=== PATIENT | female | born 1965 | race Caucasian/White ===

== ENCOUNTER → 2019-09-09 12:41 | Outpatient (BNVA) | payer BC, SELFPAY | PROVIDERS: Family Provider Family Medicine; PCP Family Medicine; Referring Provider Family Medicine; Visit Provider Obstetrics & Gynecology | DX: Z12.4 Encounter for screening for malignant neoplasm of cervix (principal); N92.0 Excessive and frequent menstruation with regular cycle | CPT/HCPCS: 88175 ==

== ENCOUNTER 2019-09-10 07:55 | Outpatient (CLI) | payer BC, SELFPAY ==
[2019-09-10 08:21] LABS: Hematocrit 43.1 % (37.0-47.0); Hemoglobin 13.7 g/dL (11.5-15.3); Mean Corpuscular HGB Conc 31.8 g/dL (30.0-36.0); Mean Corpuscular Hemoglobin 30.4 pg (28.0-34.0); Mean Corpuscular Volume 95.8 fL (81-99); Mean Platelet Volume 12.3 fL (7.4-10.4); Platelet Count 112 10^3/cmm (130-400); Red Cell Distribution Width 13.2 % (12.1-15.1); White Blood Count 5.1 10^3/uL (4.0-10.0)
[2019-09-10 09:28] LABS: Thyroid Stimulating Hormone 3.59 uIU/mL (0.27-4.20)
== END 2019-09-10 07:56 | disposition home or self-care (01) ==
LOC: LAB 07:59
PROVIDERS: Family Provider Family Medicine; PCP Family Medicine; Visit Provider Obstetrics & Gynecology
DX: N92.0 Excessive and frequent menstruation with regular cycle (principal)
CPT/HCPCS: 84443; 85027

== ENCOUNTER → 2019-09-15 09:53 | Outpatient (BNVA) | payer BC, SELFPAY | PROVIDERS: Family Provider Family Medicine; PCP Family Medicine; Visit Provider Obstetrics & Gynecology | DX: N92.0 Excessive and frequent menstruation with regular cycle (principal) | CPT/HCPCS: 76830 ==

== ENCOUNTER → 2019-09-16 08:18 | Outpatient (BNVA) | payer BC, SELFPAY | PROVIDERS: Family Provider Family Medicine; PCP Family Medicine; Visit Provider Obstetrics & Gynecology | DX: N92.0 Excessive and frequent menstruation with regular cycle (principal) | CPT/HCPCS: 88305 ==

== ENCOUNTER → 2020-01-28 10:23 | Outpatient (BNVA) | payer BC, SELFPAY | PROVIDERS: Family Provider Family Medicine; PCP Family Medicine; Visit Provider Obstetrics & Gynecology | DX: N83.201 Unspecified ovarian cyst, right side (principal) | CPT/HCPCS: 76830 ==

== ENCOUNTER 2021-01-01 12:22 | Outpatient (CLI) | payer BC, SELFPAY ==
[2021-01-01 12:42] VITALS: BP 146/80; PULSE 78; RESP 18; TEMP 36.9; O2SAT 98; BMI 33.7
[2021-01-01 13:36] VITALS: BP 121/83; PULSE 88; RESP 18; O2SAT 96
[2021-01-01 14:32] VITALS: BP 143/91; PULSE 71; RESP 17; TEMP 36.8; O2SAT 98
== END 2021-01-01 12:23 | disposition home or self-care (01) ==
LOC: OPS 12:28
PROVIDERS: PCP Family Medicine; Visit Provider Nurse Practitioner Family
DX: U07.1 COVID-19 (principal)
CPT/HCPCS: 96365

== ENCOUNTER 2021-06-19 09:17 | Outpatient (CLI) | payer BC, SELFPAY ==
--- NOTE | 2021-06-19 09:30 | MM_ITS ---
WS: [id number] BILATERAL DIGITAL SCREENING MAMMOGRAPHY WITH CAD CLINICAL INFORMATION: screening exam HISTORY: Screening mammogram. No current complaints. COMPARISON: None. TECHNIQUE: Bilateral CC and MLO views. FINDINGS: Scattered fibroglandular densities bilaterally. A few incidental punctate calcifications right breast . No suspicious focal mass, asymmetry, calcifications, or architectural distortion. No evidence of ma lignancy. MM/[place] [id number] IMPRESSION: BI-RADS: 2-Benign FOLLOW UP: 1 Year Follow-up Recommend return to annual screening mammography.
== END 2021-06-19 09:18 | disposition home or self-care (01) ==
LOC: RADSHAW 09:19
PROVIDERS: PCP Family Medicine; Visit Provider Family Medicine
DX: Z12.31 Encounter for screening mammogram for malignant neoplasm of breast (principal)
CPT/HCPCS: 77067

== ENCOUNTER → 2022-03-13 12:03 | Outpatient (BNVA) | payer BC, SELFPAY | PROVIDERS: PCP Family Medicine; Visit Provider Family Medicine | DX: Q89.2 Congenital malformations of other endocrine glands (principal) | CPT/HCPCS: 80053; 84439; 84443; 85025 ==

== ENCOUNTER 2022-04-05 13:06 | Outpatient (CLI) | payer BC, SELFPAY ==
--- NOTE | 2022-04-05 13:30 | USR_ITS ---
PROCEDURE INFORMATION: Exam: US Soft Tissue Head and Neck, Thyroid Exam date and time: 04/05/2022 1:26 PM Age: 56 years old Clinical indication: Other: Palp area on RT neck; Additional info: Mass superior to right clavicle TECHNIQUE: Imaging protocol: Real-time ultrasound scan of the neck with image documentation. Exam focused on the thyroid. COMPARISON: No relevant prior studies available. FINDINGS: Right thyroid lobe: Right lobe: 4.9 x 1.9 x 2.5 cm. 3.8 x 2.3 x 2.0 cm inhomogenous isoechoic and hypoechoic nodule with small cysts. There is vascularity within the nodule and parenchyma. Left thyroid lobe: Left lobe: 3.7 x 0.9 x 1.0 cm with 2 small 3 mm anechoic cysts. Isthmus: 0.26 cm in thickness. No nodule. Lymph nodes: Bilateral cervical lymph nodes visualized measuring up to 1.5 cm on the right and 2.1 cm on the left. US/US thyroid [id number] IMPRESSION: 1. 3.8 cm heterogeneous nodule in the right thyroid lobe. TIRADS Category 3: Mildly suspicious. Fine-needle aspiration is recommended. 2. Prominent bilateral cervical lymph nodes are most likely reactive.
== END 2022-04-05 13:07 | disposition home or self-care (01) ==
LOC: RAD 13:07
PROVIDERS: PCP Family Medicine; Visit Provider Family Medicine
DX: Q89.2 Congenital malformations of other endocrine glands (principal)
CPT/HCPCS: 76536

== ENCOUNTER 2022-05-06 08:42 | Outpatient (CLI) | payer BC, SELFPAY ==
--- NOTE | 2022-05-06 | US_ITS ---
WS: [id number] ULTRASOUND THYROID FNA CLINICAL INFORMATION: DISORDERED OF THYROID TECHNIQUE: Ultrasound-guided FNA FINDINGS: The procedure including risks, benefits, and complications were discussed with the patient who agreed to proceed. Timeout was performed. Using sterile technique patient was prepped and draped in usual sterile fashion. After 1% lidocaine, using ultrasound guidance, a 25-gauge needle was advanc ed into the complex dominant RIGHT thyroid nodule. 4 passes were made with active aspiration. Patholo gy was present for slide preparation. No immediate complications. Patient remained in the ultrasound suite 15 minutes postprocedure with intermittent ultrasound to ens ure no hematoma. No hematoma 15 minutes postprocedure. US/US biopsy/FNA thyroid [id number] IMPRESSION: Uncomplicated ultrasound-guided thyroid FNA
== END 2022-05-06 08:43 | disposition home or self-care (01) ==
PROVIDERS: PCP Family Medicine; Visit Provider Family Medicine
DX: E07.9 Disorder of thyroid, unspecified (principal)
CPT/HCPCS: 10005; 88108

== ENCOUNTER → 2022-07-18 09:39 | Outpatient (BNVA) | payer BC, SELFPAY | PROVIDERS: PCP Family Medicine; Visit Provider Family Medicine | DX: E04.1 Nontoxic single thyroid nodule (principal) | CPT/HCPCS: 80053; 84439; 84443; 85025 ==

== ENCOUNTER 2022-09-16 08:31 | Outpatient (CLI) | payer BC, SELFPAY ==
[2022-09-16 09:21] LABS: Basophils # 0.1 10^3/uL (0.0-0.1); Basophils % 1.2 %; Eosinophils # 0.2 10^3/uL (0.0-0.8); Eosinophils % 4.8 %; Hematocrit 45.3 % (37.0-47.0); Hemoglobin 15.2 g/dL (11.5-15.3); Lymphocytes # 1.6 10^3/uL (0.8-4.8); Lymphocytes % 37.7 %; Mean Corpuscular HGB Conc 33.6 g/dL (30.0-36.0); Mean Corpuscular Hemoglobin 31.6 pg (28.0-34.0); Mean Corpuscular Volume 94.2 fl (81-99); Mean Platelet Volume 11.7 fL (7.4-10.4); Monocytes # 0.4 10^3/uL (0.2-0.9); Monocytes % 9.7 %; Neutrophils # 1.92 10^3/uL (1.8-7.7); Neutrophils % 46.4 %; Nucleated Red Blood Cells % 0 %; Platelet Count 45 10^3/cmm (130-400); Red Blood Count 4.81 10^6/uL (4.1-5.3); Red Cell Distribution Width 14.1 % (12.1-15.1); White Blood Count 4.1 10^3/uL (4.0-10.0)
[2022-09-16 09:34] LABS: Alanine Aminotransferase 58 U/L (0-33); Albumin Level 3.7 g/dL (3.5-5.2); Alkaline Phosphatase 123 U/L (35-105); Anion Gap 14.3 (5-19); Blood Urea Nitrogen 8 mg/dL (6-20); Calcium 9.2 mg/dL (8.5-10.5); Carbon Dioxide 24 mmol/L (22-29); Chloride 103 mmol/L (98-107); Globulin 2.6 g/dL (1.3-4.6); Glomerular Filtration Rate 126.3 mL/min (90-130); Glucose 131 mg/dL (65-115); Osmolality Calculated 284 mOsm/kg (285-295); Potassium 4.3 mmol/L (3.5-5.1); Sodium 137 mmol/L (136-145); Total Bilirubin 0.7 mg/dL (0.15-1.2); Total Protein 6.3 g/dL (6.6-8.7)
[2022-09-16 09:35] LABS: Aspartate Amino Transferase 67 U/L (0-32)
[2022-09-16 09:44] LABS: Slide Review Slide Review Perform
== END 2022-09-16 08:32 | disposition home or self-care (01) ==
PROVIDERS: PCP Family Medicine; Visit Provider Specialist
DX: E04.1 Nontoxic single thyroid nodule (principal)
CPT/HCPCS: 36415; 80053; 85025

== ENCOUNTER → 2022-11-07 10:49 | Outpatient (BNVA) | payer BC, SELFPAY | PROVIDERS: PCP Family Medicine; Visit Provider Family Medicine | DX: E04.1 Nontoxic single thyroid nodule (principal) | CPT/HCPCS: 84439; 84443 ==

== ENCOUNTER 2023-01-16 09:53 | Outpatient (CLI) | payer BC, SELFPAY ==
[2023-01-16 11:01] LABS: Free T4 Free Thyroxine 1.26 ng/dL (0.82-1.77); Thyroid Stimulating Hormone 2.41 uIU/mL (0.27-4.20)
== END 2023-01-16 09:54 | disposition home or self-care (01) ==
PROVIDERS: PCP Family Medicine; Visit Provider Specialist
DX: Z01.89 Encounter for other specified special examinations (principal)
CPT/HCPCS: 36415; 84439; 84443

== ENCOUNTER 2023-08-18 10:51 | Outpatient (CLI) | payer BC, SELFPAY ==
--- NOTE | 2023-08-18 10:58 | XR_ITS ---
WS: [id number] Examination: XR knee RT 3V* [id number] Reason for Exam: edema in right knee Date: August 18, 2023 Comparison: None. Findings: The bone density is maintained. There is no destruction. There is no fracture or dislocation No large joint effusion is present. Limited narrowing of the medial joint space is suspected. Impression: There is no acute bony abnormality There is limited narrowing of the medial joint space and mild degenerative changes.
== END 2023-08-18 10:52 | disposition home or self-care (01) ==
LOC: RAD 10:53
PROVIDERS: PCP Family Medicine; Visit Provider Family Medicine
DX: M17.11 Unilateral primary osteoarthritis, right knee (principal)
CPT/HCPCS: 73562

== ENCOUNTER 2023-08-20 07:35 | Outpatient (CLI) | payer BC, SELFPAY ==
[2023-08-20 08:06] LABS: Basophils # 0.1 10^3/uL (0.0-0.1); Basophils % 1.8 %; Eosinophils # 0.1 10^3/uL (0.0-0.8); Eosinophils % 2.5 %; Hematocrit 46.9 % (36-47); Lymphocytes # 1.4 10^3/uL (0.8-4.8); Lymphocytes % 35.1 %; Mean Corpuscular HGB Conc 32.2 g/dL (30-55); Mean Corpuscular Hemoglobin 31.8 pg (27-33); Mean Corpuscular Volume 98.7 fl (85-98); Mean Platelet Volume 12.9 fL (7.4-10.4); Monocytes # 0.4 10^3/uL (0.2-0.9); Monocytes % 9.7 %; Neutrophils % 50.9 %; Nucleated Red Blood Cells % 0 %; Platelet Count 61 10^3/cmm (157-399); Red Blood Count 4.75 10^6/uL (3.85-5.65); Red Cell Distribution Width 14.4 % (12.1-15.1); White Blood Count 3.93 10^3/uL (3.29-11.43)
[2023-08-20 08:36] LABS: Alanine Aminotransferase 43 U/L (0-33); Alkaline Phosphatase 109 U/L (35-105); Anion Gap 13.1 (5-19); Aspartate Amino Transferase 56 U/L (0-32); Blood Urea Nitrogen 11 mg/dL (8-23); Calcium 9.5 mg/dL (8.5-10.5); Carbon Dioxide 23 mmol/L (22-29); Chloride 108 mmol/L (98-107); Cholesterol 219 mg/dL (0-200); Free T4 Free Thyroxine 1.29 ng/dL (0.82-1.77); Globulin 2.8 g/dL (1.3-4.6); Glomerular Filtration Rate 125.9 mL/min (90-130); Glucose 106 mg/dL (65-115); HDL Cholesterol 81 mg/dL (60-100); LDL Cholesterol Calculated 117 mg/dL (50-129); LDL HDL Ratio 1.44 RATIO (0.00-3.22); Osmolality Calculated 290 mOsm/kg (285-295); Potassium 4.1 mmol/L (3.5-5.1); Sodium 140 mmol/L (136-145); Thyroid Stimulating Hormone 3.17 uIU/mL (0.27-4.20); Total Bilirubin 1.2 mg/dL (0.15-1.2); Total Protein 6.8 g/dL (6.6-8.7); Triglycerides 104 mg/dL (0-150)
== END 2023-08-20 07:36 | disposition home or self-care (01) ==
LOC: LAB 07:40
PROVIDERS: Absent Provider Specialist; PCP Family Medicine; Visit Provider Family Medicine
DX: Z01.818 Encounter for other preprocedural examination (principal); E04.1 Nontoxic single thyroid nodule
CPT/HCPCS: 36415; 80053; 80061; 84439; 84443; 85025

== ENCOUNTER 2023-09-03 12:17 | Outpatient (CLI) | payer BC, SELFPAY ==
[2023-09-05 07:11] LABS: Lymphoma Profile (BBPL) See Report
== END 2023-09-03 12:18 | disposition home or self-care (01) ==
LOC: LAB 12:18
PROVIDERS: PCP Family Medicine; Visit Provider Specialist
DX: R22.1 Localized swelling, mass and lump, neck (principal)
CPT/HCPCS: 87015; 87070; 87102; 87116; 87176; 87205; 87206; 87801; 88184; 88185

== ENCOUNTER 2024-08-27 09:16 | Emergency (ER) | payer BC, SELFPAY ==
[2024-08-27] VITALS (8 sets, daily range): BP systolic 95–123; BP diastolic 43–97; PULSE 64–94; RESP 15–22; TEMP 36.8; O2SAT 97–99; BMI 37.3
--- NOTE | 2024-08-27 09:32 | W.ED.WEAKNES ---
HPI - Weakness General: Chief complaint: Weakness Stated complaint: weakness - jaundice Time Seen by Provider: 08/27/24 09:17 History of Present Illness: 59-year-old female with a history of obesity, anxiety and asthma who presents to the emergency room with increasing weakness for the last month. She said she started become jaundiced over the last week. And then she started having swelling over the last few days. She is extremely edematous and her abdomen is distended and mildly tender diffusely. She is obviously jaundiced. She says she has had decreased urine output. Less frequent stools. No fevers. No altered mental status. She denies any heavy use of alcohol. She does state a family history of noncancerous liver disease that took her father's life. Review of Systems Narrative: Constitutional symptoms: Negative except as documented in HPI. Skin symptoms: Negative except as documented in HPI. Eye symptoms: Negative except as documented in HPI. ENMT symptoms: Negative except as documented in HPI. Respiratory symptoms: Negative except as documented in HPI. Cardiovascular symptoms: Negative except as documented in HPI. Gastrointestinal symptoms: Negative except as documented in HPI. Genitourinary symptoms: Negative except as documented in HPI. Musculoskeletal symptoms: Negative except as documented in HPI. Neurologic symptoms: Negative except as documented in HPI. Psychiatric symptoms: Negative except as documented in HPI. Endocrine symptoms: Negative except as documented in HPI. [facility] ED PFSH: Medical History Anxiety Asthma Obesity Renal calculi Thyroid cyst Surgical History History of surgery on wrist (~09/2016) left wrist, in [facility] Family History Father Heart disease Hypercholesteremia Thyroid disease Diabetes Daughter Hypertension Mother Hypertension Thyroid disease Diabetes Brother Thyroid disease Sister Thyroid disease Social History Smoking and tobacco/nicotine status: former use of tobacco/nicotine Alcohol intake: current Alcohol intake frequency: 0-2 Drinks per Day Alcohol type: wine Substance/Drug Use: never Physical Exam Narrative: EXAM NARRATIVE: General: Alert, no acute distress. Skin: Warm, dry. Jaundice Head: Normocephalic, atraumatic. Neck: Supple, trachea midline. Eye: Extraocular movements are intact. Ears, nose, mouth and throat: Tacky oral mucosa Cardiovascular: Regular, Normal peripheral perfusion. 2-3+ pitting edema of the legs Respiratory: Lungs are clear to auscultation, respirations are non-labored, breath sounds are equal, Symmetrical chest wall expansion. Gastrointestinal: Abdomen is fairly distended. No focal tenderness. Diffuse mild tenderness. Musculoskeletal: Normal ROM, no deformity. Neurological: Alert and oriented, No focal neurological deficit observed. Psychiatric: Cooperative, appropriate mood & affect. Course Vital Signs: Vital signs: Vital Signs Temperature 98.3 F 08/27/24 09:17 Pulse Rate 92 08/27/24 14:06 Respiratory Rate 18 08/27/24 14:06 Blood Pressure 108/47 08/27/24 14:06 Pulse Oximetry 97 08/27/24 14:06 Oxygen Delivery Me thod Room Air 08/27/24 14:06 MDM - Weakness Medical Decision Making Medical decision making: Differential diagnosis for patient presenting with generalized weakness including but not limited to and based on the above HPI, review of systems and physical exam: Sepsis. Dehydration. Renal failure. Electrolyte abnormalities. Anemia. Congestive heart failure. Hypotension. Coronary syndrome. Hepatitis. Cirrhosis. Infections such as pneumonia, urinary tract infection, [place] illness, Cellulitis, Viral infections including influenza and Covid-19. Workup: labwork and lab/exam driven imaging ordered to evaluate, rule in and rule out above pathologies. Lab Review: Laboratory results were reviewed and interpreted by myself the emergency room physician. Leukocytosis with a white count of 14,000. No anemia. Platelets are low at 122. Sodium is extremely low at 116. BUN and creatinine are acutely elevated at 50 and 2.9. 1 year ago she had normal renal function and normal sodium. Urinalysis with concern for infection. Nitrate positive. 5-10 whites. 1+ bacteria. Covering for this and SBP with cefepime. CT of the chest abdomen pelvis without contrast: This was done without contrast secondary to patient's renal failure. No evidence of pneumonia. Some mild atelectasis. Cirrhotic configuration of the liver with diffuse coarse heterogeneous [place] attenuation and innumerable small low-attenuation lesions. Metastatic disease or HCC not excluded on this noncontrast study. This was reviewed and interpreted by myself the emergency room physician. I also reviewed the radiology report. I reviewed the patient's medical record. Reexamination: Patient has remained stable as far as her breathing and vitals go. Blood pressures been normal to low normal. She has had no altered mental status. We discussed the findings and she has quite a few questions a lot of which I can answer with the limited amount of information we have right now. Assessment and plan: Hyponatremia Cirrhosis Hyperbilirubinemia Possible liver masses Urinary tract infection Acute renal failure Anasarca Ascites ?Ultimately given this patient's critical status with a sodium of 116 and unclear cause of her renal failure/liver failure with possible masses in her liver and concern for biliary obstruction she needs transfer to a tertiary care center where there is gastroenterology and critical care available. -1 L normal saline bolus. Patient is extremely edematous but she does have low sodium and a white count so I am starting with just a single liter of fluid at this time. Given cefepime. Would cover UTI and SBP. -Sepsis quality measures. -Lactic acid with a reflex was ordered. -Blood cultures were ordered. -I discussed the patient with the accepting physician on-call. - Discussed findings and plan with patient. Answered any questions. - All laboratory values were reviewed and interpreted personally by myself, the ER physician - All imaging was reviewed and interpreted personally by myself, the ER physician. - Evaluation and treatment of this problem were appropriate in the emergency setting Critical care -I spent a total of >35 minutes of critical care time managing the patient, independent of any other practitioner. -The time involved in the performance of separately reportable procedures was not counted towards critical care time. Lab Data 08/27/24 09:47 08/27/24 10:52 Radiology Impressions Chest/Abdomen/Pelvis CT 08/27/24 11:30 IMPRESSION: 1. Slight atelectasis in the lung bases. No focal pneumonia. 2. Cirrhotic configuration of the liver with diffuse coarse heterogeneous attenuation and innumerable small low-attenuation lesions. Metastatic disease or HCC not excluded on this noncontrast study. 3. Moderate abdominal ascites with diffuse body wall anasarca. 4. Small esophageal ventral hernia. 5. No other acute findings. Abdomen Ultrasound 08/27/24 12:03 IMPRESSION: 1. Cirrhotic liver with dense coarse echogenicity. No discernible focal lesions. 2. Ascites 3. Contracted gallbladder with thickened gallbladder wall which appears chronic presumably due to liver disease. Trace sludge in the gallbladder. Slight mineralization of the gallbladder wall on the noncontrast CT 4. Normal common bile duct. 5. No hydronephrosis in RIGHT kidney Laboratory Results WBC 14.07 10^3/uL (3.29-11.43) H 08/27/24 09:47 RBC 4.24 10^6/uL (3.85-5.65) 08/27/24 09:47 Hgb 13.70 g/dL (11.27-16.99) 08/27/24 09:47 Hct 38.2 % (36-47) 08/27/24 09:47 MCV 90.1 fl (85-98) 08/27/24 09:47 MCH 32.3 pg (27-33) 08/27/24 09:47 MCHC 35.9 g/dL (30-55) 08/27/24 09:47 RDW 19.3 % (12.1-15.1) H 08/27/24 09:47 Plt Count 122 10^3/cmm (157-399) L 08/27/24 09:47 MPV 10.7 fL (7.4-10.4) H 08/27/24 09:47 Neut % (Auto) 78.2 % 08/27/24 09:47 Lymph % (Auto) 9.2 % 08/27/24 09:47 [place] % (Auto) 9.9 % 08/27/24 09:47 Eos % (Auto) 1.6 % 08/27/24 09:47 Baso % (Auto) 0.2 % 08/27/24 09:47 Neut # (Auto) 11.00 10^3/uL (1.8-7.7) H 08/27/24 09:47 Lymph # (Auto) 1.3 10^3/uL (0.8-4.8) 08/27/24 09:47 [place] # (Auto) 1.4 10^3/uL (0.2-0.9) H 08/27/24 09:47 Eos # (Auto) 0.2 10^3/uL (0.0-0.8) 08/27/24 09:47 Baso # (Auto) 0.0 10^3/uL (0.0-0.1) 08/27/24 09:47 Nucleated RBC % (auto) 0 % 08/27/24 09:47 Nucleated RBCs # 0.0 /100WBC 08/27/24 09:47 PT 26.50 SECONDS (12.1-14.9) H 08/27/24 09:47 INR 2.28 (0.8-1.2) H 08/27/24 09:47 APTT 48.3 SECONDS (23.9-36.7) H 08/27/24 09:47 Sodium 116 mmol/L (136-145) L* 08/27/24 10:52 Potassium 4.5 mmol/L (3.5-5.1) 08/27/24 10:52 Chloride 87 mmol/L (98-107) L 08/27/24 10:52 Carbon Dioxide 17 mmol/L (22-29) L 08/27/24 10:52 Anion Gap 16.5 (5-19) 08/27/24 10:52 BUN 50 mg/dL (8-23) H 08/27/24 10:52 Creatinine 2.9 mg/dL (0.5-0.9) H 08/27/24 10:52 GFR Calculation 16.5 mL/min (90-130) L 08/27/24 10:52 Glucose 110 mg/dL (65-115) 08/27/24 10:52 Calculated Osmolality 256 mOsm/kg (285-295) L 08/27/24 10:52 Lactic Acid 1.5 mmol/L (0.5-2.2) 08/27/24 09:47 Calcium 8.1 mg/dL (8.5-10.5) L 08/27/24 10:52 Total Bilirubin 31.4 mg/dL (0.15-1.2) H* 08/27/24 10:52 AST 128 U/L (0-32) H 08/27/24 10:52 ALT 59 U/L (0-33) H 08/27/24 10:52 Alkaline Phosphatase 196 U/L (35-105) H 08/27/24 10:52 Ammonia 24 umol/L (11-51) 08/27/24 09:47 NT-Pro-B Natriuret Pep 601 pg/mL (0-125) H 08/27/24 10:52 Total Protein 4.7 g/dL (6.6-8.7) L 08/27/24 10:52 Albumin 2.6 g/dL (3.5-5.2) L 08/27/24 10:52 Globulin 2.1 g/dL (1.3-4.6) 08/27/24 10:52 Procalcitonin 2.47 ng/mL (0-0.5) H 08/27/24 10:52 Urine Color Dark yellow (Yellow) A 08/27/24 09:47 Urine Appearance Cloudy (CLEAR) A 08/27/24 09:47 Urine pH 5 (5-7) 08/27/24 09:47 Ur Specific [place] 1.020 (1.005-1.030) 08/27/24 09:47 Urine Protein 1+ (Negative) H 08/27/24 09:47 Urine Glucose (UA) Trace (Normal) H 08/27/24 09:47 Urine Ketones Negative (Negative) 08/27/24 09:47 Urine Blood 3+ (Negative) H 08/27/24 09:47 Urine Nitrate Positive (Negative) A 08/27/24 09:47 Urine Bilirubin 3+ (Negative) H 08/27/24 09:47 Urine Urobilinogen 8 mg/dL (Negative) H 08/27/24 09:47 Ur Leukocyte Esterase Trace (Negative) H 08/27/24 09:47 Urine RBC 11-20 /hpf (0-2) H 08/27/24 09:47 Urine WBC 5-10 /hpf (0-5) H 08/27/24 09:47 Ur Squamous Epith Cells 5-10 /hpf (0-5) H 08/27/24 09:47 Amorphous Sediment Not Reportable 08/27/24 09:47 Urine Bacteria 1+ /hpf (NONE) H 08/27/24 09:47 Hyaline Casts 19.43 /lpf 08/27/24 09:47 Coarse Granular Casts 0-4 /lpf H 08/27/24 09:47 Ethyl Alcohol < 10 mg/dL (0-10) 08/27/24 10:52 Hepatitis A IgM Ab Non-reactive (Nonreactive) 08/27/24 09:47 Hep Bs Antigen Non-reactive (Nonreactive) 08/27/24 09:47 Hep B Core IgM Ab Non-reactive (Nonreactive) 08/27/24 09:47 Hepatitis C Antibody Non-reactive (Nonreactive) 08/27/24 09:47 All radiology interpretation(s) finalized by discharge Discharge Plan Discharge Patient Disposition: Xfer Short-Term Hosp Clinical Impression: Cirrhosis, Acute hyponatremia, Acute renal failure, Hyperbilirubinemia, Anasarca, Ascites Condition: Stable Referrals: Lawrence Peterson MD [Primary Care Provider] - Print Language: Romanian Coding Level of Care Code ED Runway Model for Chg Fwd Related Data Previous Rx's ?Medication ?Instructions ?Recorded montelukast 10 mg tablet 10 mg PO DAILY #90 tabs 08/18/23 levothyroxine 100 mcg tablet 100 mcg PO DAILY #90 tabs 11/10/23 estradiol 1 mg tablet See Rx Instructions .Route 01/20/24 .COMPLEX #90 tabs alprazolam 0.5 mg tablet (Xanax) 0.5 mg PO ONCE PRN sleep #30 tabs 05/11/24 hydrocodone 5 mg-acetaminophen 325 1 tab PO Q12H PRN chronic 05/18/24 mg tablet pain/osteoarthritis 30 days #60 tabs medroxyprogesterone 2.5 mg tablet See Rx Instructions .Route 06/09/24 .COMPLEX #90 tabs albuterol sulfate 90 mcg/actuation See Rx Instructions .Route 07/06/24 aerosol inhaler (Ventolin HFA) .COMPLEX #17 grams Allergies Allergy/AdvReac Type Severity Reaction Status Date / Time amoxicillin (From Augmentin) Allergy vomiting Verified 08/18/23 09:38 ciprofloxacin Allergy vomiting Verified 08/18/23 09:38 clavulanic acid (From Allergy vomiting Verified 08/18/23 09:38 Augmentin)
--- NOTE | 2024-08-27 10:01 | PC.NURSE ---
pt provided x2 warm blankets, gown, and depends. denies any further needs at this time.
[2024-08-27 10:05] LABS: Basophils % 0.2 %; Eosinophils # 0.2 10^3/uL (0.0-0.8); Eosinophils % 1.6 %; Hematocrit 38.2 % (36-47); Lymphocytes # 1.3 10^3/uL (0.8-4.8); Lymphocytes % 9.2 %; Mean Corpuscular HGB Conc 35.9 g/dL (30-55); Mean Corpuscular Hemoglobin 32.3 pg (27-33); Mean Corpuscular Volume 90.1 fl (85-98); Mean Platelet Volume 10.7 fL (7.4-10.4); Monocytes # 1.4 10^3/uL (0.2-0.9); Monocytes % 9.9 %; Neutrophils % 78.2 %; Nucleated Red Blood Cells % 0 %; Platelet Count 122 10^3/cmm (157-399); Red Blood Count 4.24 10^6/uL (3.85-5.65); Red Cell Distribution Width 19.3 % (12.1-15.1); White Blood Count 14.07 10^3/uL (3.29-11.43)
[2024-08-27 10:08] LABS: Hyaline Casts Urine 19.43 /lpf
[2024-08-27 10:14] LABS: INR 2.28 (0.8-1.2)
[2024-08-27 10:15] LABS: Partial Thromboplastin Time 48.3 SECONDS (23.9-36.7)
[2024-08-27 10:22] LABS: Ammonia 24 umol/L (11-51)
[2024-08-27 10:27] LABS: Bilirubin Urine 3+ (Negative); Blood Urine 3+ (Negative); Glucose Urine UA Trace (Normal); Ketones Urine Negative (Negative); Leukocyte Esterase Urine Trace (Negative); Nitrate Urine Positive (Negative); Protein Urine 1+ (Negative); UA Slide Review UA Slide Review Perf; Urine Appearance Cloudy (CLEAR); Urine Color Dark Yellow (Yellow); Urobilinogen Urine 8 mg/dL (Negative); pH Urine 5 (5-7)
[2024-08-27 10:28] LABS: Add Urine Culture? Yes; Bacteria Urine 1+ /hpf; Coarse Granular Casts Urine 0-4 /lpf
[2024-08-27 10:37] LABS: Hepatitis A Antibody IgM Non-Reactive (Nonreactive); Hepatitis B Core IgM Non-Reactive (Nonreactive); Hepatitis B Surface Antigen Non-Reactive (Nonreactive); Hepatitis C Virus Antibody Non-Reactive (Nonreactive)
[2024-08-27 11:25] LABS: Alanine Aminotransferase 59 U/L (0-33); Albumin Level 2.6 g/dL (3.5-5.2); Alkaline Phosphatase 196 U/L (35-105); Anion Gap 16.5 (5-19); Aspartate Amino Transferase 128 U/L (0-32); Blood Urea Nitrogen 50 mg/dL (8-23); Calcium 8.1 mg/dL (8.5-10.5); Carbon Dioxide 17 mmol/L (22-29); Chloride 87 mmol/L (98-107); Creatinine Clr Calc Pharmacy 28.3888; Globulin 2.1 g/dL (1.3-4.6); Glomerular Filtration Rate 16.5 mL/min (90-130); Glucose 110 mg/dL (65-115); NT Pro B Type Natriuretic Pept 601 pg/mL (0-125); Osmolality Calculated 256 mOsm/kg (285-295); Potassium 4.5 mmol/L (3.5-5.1); Total Protein 4.7 g/dL (6.6-8.7)
[2024-08-27 11:28] LABS: Alcohol Level < 10 mg/dL (0-10)
[2024-08-27 11:29] LABS: Sodium 116 mmol/L (136-145); Total Bilirubin 31.4 mg/dL (0.15-1.2)
--- NOTE | 2024-08-27 11:30 | CT_ITS ---
WS: [id number] CT CHEST, ABDOMEN, AND PELVIS TECHNIQUE: Noncontrast CT of the chest, abdomen, and pelvis with coronal and sagittal reformatted images. CLINICAL INFORMATION: cirrhosis, hyperbili, fluid overload COMPARISON: None. DLP: 1317.[address] scans at [facility] use at least one of these dose optimization techniques: automated exposure control; mA and/or kV adjustment per patient size (includes targeted exams where dose is matched to clinical indication); or iterative reconstruction. CT CHEST: Slight bibasilar atelectasis. Lungs are well aerated. No focal pneumonia. Cardiomegaly. No mediastinal or hilar lymphadenopathy. No axillary lymphadenopathy. CT ABDOMEN AND PELVIS: Cirrhotic liver. Diffuse heterogeneous attenuation with innumerable small low- attenuation lesions suspicious for diffuse parenchymal disease, HCC or metastatic disease not excluded on this noncontrast study. Contracted gallbladder. Gallbladder should wall calcification. Suggestion of sludge in the gallbladder. Moderate ascites. Small esophageal hernia. Diffuse body wall anasarca and mesenteric edema. Fatty atrophy of the pancreas. Adrenal glands are normal. No hydronephrosis in either kidney. [place]eballos catheter. [place] [id number] IMPRESSION: 1. Slight atelectasis in the lung bases. No focal pneumonia. 2. Cirrhotic configuration of the liver with diffuse coarse heterogeneous atte nuation and innumerable small low-attenuation lesions. Metastatic disease or HC C not excluded on this noncontrast study. 3. Moderate abdominal ascites with diffuse body wall anasarca. 4. Small esophageal ventral hernia. 5. No other acute findings.
--- NOTE | 2024-08-27 12:03 | US_ITS ---
WS: [id number] ULTRASOUND ABDOMEN LIMITED CLINICAL INFORMATION: gallbladder, liver. cirrhosis. COMPARISON: None. FINDINGS: Liver Size: Normal. Craniocaudal length: 14.8 cm. Echogenicity: Coarse Surface nodularity: Cirrhotic Mass (size and location): None. Bile ducts Intrahepatic ducts: Normal. Common bile duct diameter: 0.6 cm. Gallbladder Contracted gallbladder with thickened gallbladder wall presumably due to liver disease Gallstones: None. Gallbladder sludge: Present Pericholecystic fluid: None. Sonographic Mc sign: Absent. Pancreas Normal as visualized. Right kidney: Normal. Hydronephrosis: None. Size: 12.4 cm x 4.8 cm x 5.2 cm. Abdominal aorta and IVC Visualized portions are normal. Ascites: None. US/US abdomen limited [id number] IMPRESSION: 1. Cirrhotic liver with dense coarse echogenicity. No discernible focal lesion s. 2. Ascites 3. Contracted gallbladder with thickened gallbladder wall which appears chroni c presumably due to liver disease. Trace sludge in the gallbladder. Slight mine ralization of the gallbladder wall on the noncontrast CT 4. Normal common bile duct. 5. No hydronephrosis in RIGHT kidney
--- NOTE | 2024-08-27 12:07 | PC.NURSE ---
Cefepime delayed d/t waiting on blood cultures to be obtained
[2024-08-27 12:23] LABS: Lactic Sepsis W/Reflex 1.5 mmol/L (0.5-2.2)
[2024-08-27 12:33] LABS: Procalcitonin 2.47 ng/mL (0-0.5)
[2024-08-27] MEDS: cefepime 2,000 mg SDV 2000 MG IVP (12:50)
[2024-08-27] MEDS: ondansetron 2 mg/ML SDV 2 mL 4 MG IVP (13:45)
[2024-08-27] MEDS: HYDROmorphone 0.5 MG/0.5 ML INJ IVP (13:45)
[2024-08-27] MEDS: sodium chloride 0.9% 1,000 ML 999 ML IV (14:29)
--- NOTE | 2024-08-27 17:46 | PC.NURSE ---
report called to Viktoriya morris [facility] in [place], [place]. [phone]; Report number
--- NOTE | 2024-08-27 17:57 | PC.NURSE ---
pt updated of [facility] transport, denies further questions. Facility updated at number report called to.
--- NOTE | 2024-08-27 18:05 | PC.NURSE ---
report given to [facility] @[id number]; no further questions
== END 2024-08-27 18:29 | disposition short-term general hospital (02) ==
PROVIDERS: Emergency Provider Emergency Medicine; PCP Family Medicine
DX: K74.60 Unspecified cirrhosis of liver (principal); E87.1 Hypo-osmolality and hyponatremia; N17.9 Acute kidney failure, unspecified; E80.6 Other disorders of bilirubin metabolism; R18.8 Other ascites; Z87.891 Personal history of nicotine dependence
CPT/HCPCS: 36415; 51702; 71250; 74176; 76705; 80053; 80074; 80307; 81001; 82140; 83605; 83880; 84145; 85025; 85610; 85730; 87040; 87086; 96374; 96375; 99285; 99291; 99292; J0692; J1171; J2405; J7030